=== PATIENT | female | born 1990 | race Caucasian/White ===

== ENCOUNTER 2017-06-19 13:17 | Emergency (ER) | payer OTHER ==
[2017-06-19 13:28] VITALS: BP 130/86
--- NOTE | 2017-06-19 13:33 | EDM.PDOC ---
ED HPI GENERAL MEDICAL PROBLEM - General Chief Complaint: Upper Extremity Injury/Pain Stated Complaint: R SHOULDER PAIN/FALL Time Seen by Provider: 06/19/17 13:28 Source of Information: Reports: Patient, Family (friend) History Limitations: Reports: No Limitations - History of Present Illness INITIAL COMMENTS - FREE TEXT/NARRATIVE: 27-year-old female presents to the ED for evaluation of right shoulder pain and left buttock pain. Patient was injured in the workplace last evening about 2000 hrs. when she slipped on a wet floor. Injury occurred in the workplace i.e. a restaurant. 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 Today she is experiencing increased pain in her right shoulder particularly with abduction or forward flexion. She is unable to do her hair with her right hand today of note she is right-hand dominant. She has pain in her distribution of the trapezius and right upper shoulder rhomboid levator scapular muscles. Of note the arm was above her head when it experienced a sudden jerk as she fell. Also experiencing pain throughout her anterior chest. Feels some discomfort in forearm musculature particularly volarly with clenching of fist. Denies hitting her head or losing consciousness etc. No previous injuries or surgeries to her right shoulder. Onset: Other Onset Date: 06/18/17 Onset Time: 20:00 Duration: Hour(s): Location: Reports: Chest (Anterior chest), Back (Right upper extremity shoulder upper back back trapezius levator scapulae rhomboid musculature), Upper Extremity, Right, Other (Left buttock) Quality: Reports: Ache, Other Severity: Moderate (Painful movement of particularly the right shoulder) Improves with: Reports: Rest Worsens with: Reports: Movement (And not moveing.) Context: Reports: Other (Fall at the workplace) Associated Symptoms: Reports: Chest Pain Right Shoulder Pain Score (Numeric/FACES): 6 - Related Data Home Meds: Home Meds Prozac. 06/19/17 [History] Past Medical History Psychiatric History: Reports: Depression Social & Family History - Living Situation & Occupation Living situation: Reports: Single Occupation: Employed Review of Systems - Review of Systems Review Of Systems: See Below Constitutional: Reports: No Symptoms Eyes: Reports: No Symptoms Ears: Reports: No Symptoms Nose: Reports: No Symptoms Mouth/Throat: Reports: No Symptoms Respiratory: Reports: No Symptoms Cardiovascular: Reports: No Symptoms GI/Abdominal: Reports: No Symptoms Genitourinary: Reports: No Symptoms Musculoskeletal: Reports: No Symptoms Skin: Reports: No Symptoms Neurological: Reports: No Symptoms Psychiatric: Reports: No Symptoms ED EXAM, GENERAL - Physical Exam Exam: See Below Exam Limited By: No Limitations General Appearance: Alert, WD/WN, No Apparent Distress Head: Atraumatic, Normocephalic Neck: Tender Lateral (Tenderness laterally around the paraspinal muscles particularly around C7 C6 area on the right side. She is full unrestricted range of motion of her neck [place]. There is pain throughout the distribution of the right trapezius muscle and levator scapular muscles rhomboid muscles in this area. She appears to have a rib head subluxation at the T5 area.) Respiratory/Chest: No Respiratory Distress, Lungs Clear, Normal Breath Sounds, No Accessory Muscle Use, Other (Some pain on compression of the right chest wall ribs 34 and 5 in the distribution more of the pectoralis major muscle versus the ribs.) Cardiovascular: Normal Peripheral Pulses, Regular Rate, Rhythm, No Edema, No Murmur, No Rub Back Exam: Other (Mild tenderness over the posterior iliac crest on the left side and is bit of the superior SI joint. No bruising or swelling is otherwise evident. Certainly no evidence of bony injury in this area.) Extremities: Other (Well localized tenderness to the paraspinal muscles on the right side particularly over thoracic 5 facet joint a rib head subluxation. Tenderness throughout the rhomboid levator scapula and trapezius muscle up superiorly.) Neurological: Alert, Oriented, CN II-XII Intact, Normal Cognition, Normal Gait Psychiatric: Normal Affect, Normal Mood Skin Exam: Warm, Dry, Intact, Normal Color, No Rash Course - Vital Signs Last Recorded V/S: Last Vital Signs Temp 36.6 C 06/19/17 13:24 Pulse 76 06/19/17 13:24 Resp BP 130/86 06/19/17 13:24 Pulse Ox 98 06/19/17 13:24 - Orders/Labs/Meds Orders: Active Orders 24 hr Category Date Time Status Shoulder Comp Rt [CR] Stat Exams 06/19/17 13:59 Taken Labs: Laboratory Tests 06/19/17 Range/Units 13:30 Urine HCG, Qual Negative (NEGATIVE) - Re-Assessments/Exams Free Text/Narrative Re-Assessment/Exam: 06/19/17 13:39 27-year-old female arrives in the ED for evaluation of work related injury that occurred at 2000 hrs. last evening. She slipped on wet floor. She reached up to grab onto an object to prevent the fall and unfortunately differs right shoulder head would jerk as well as her right neck right anterior chest wall etc. Pain is limited to the upper right shoulder area particularly posteriorly in the distribution of the trapezius rhomboid he beat her scapular muscle group etc. Contusion to her right buttock talked posterior iliac crest and SI joint area without fracture. Will x-ray her right shoulder. Is question whether she could be as she is not using any form of control. Therefore urine hCG ordered. 06/19/17 14:00 beta-hCG done on the urine was negative. Therefore an x-ray of her shoulder was ordered. 06/19/17 14:09 3 views of the right shoulder are completely normal. Therefore patient suffered extensive Musca scleral strain involving the right paraspinal muscles of her neck or trapezius rhomboids and levator scapula muscles in her upper back and shoulder. Also some pain throughout the anterior chest I suspect due to pectoralis major strain. Contusion to the right left buttock talked posterior iliac crest and SI joint area. Ice pack to the area for one half hour out of every 4 hours today. By that she'll be worse tomorrow. Use Aleve 2 tablets every 8 hours for pain and inflammation relief. Note written to excuse her from the work place for the next 5 days as I believe the will take about that long for her Musculoskeletal injuries to settle down. Departure - Departure Time of Disposition: 14:13 Disposition: Home, Self-Care 01 Condition: Fair Clinical Impression: Muscle strain of anterior chest wall, Contusion of lower back and pelvis, initial encounter Muscle strain of right upper back Qualifiers: Encounter type: initial encounter Qualified Code(s): S29.012A - Strain of muscle and tendon of back wall of thorax, initial encounter - Discharge Information Forms: ED Department Discharge, ED Return to Work/School Form Additional Instructions: Evaluation in the emergency department today in regards to work related injury suffered last night. Fall resulted in grabbing out to prevent fall to the floor with severe strain of the right upper posterior shoulder muscles including the trapezius rhomboids and levator scapular musculature. With head subluxation at thoracic 5 appreciated on examination. Chest wall strain similarly from grabbing and falling. This involves the pectoralis major muscles. Contusion to the left buttock and pelvis area x-ray of the right shoulder is negative for any bony injuries. Expect to be worse tomorrow and then gradually improve over the next 3-5 days. Just off of work for the next 5 days. Suggest Aleve 2 tablets every 8 hours to relieve pain and inflammation. Ice pack to the sore areas for one half hour out of every 4 hours today after today he may apply heat to the areas. - My Orders Last 24 Hours: My Active Orders 06/19/17 13:59 Shoulder Comp Rt [CR] Stat - Assessment/Plan Last 24 Hours: My Active Orders 06/19/17 13:59 Shoulder Comp Rt [CR] Stat
--- NOTE | 2017-06-20 17:29 | CR ---
Right shoulder: Three views of the right shoulder were obtained. Comparison: No previous study. Glenohumeral joint and acromioclavicular joint are unremarkable. No fracture, dislocation or other bony abnormality is seen. Impression: 1. No abnormality is identified on right shoulder study. Diagnostic code #1
== END 2017-06-19 14:30 | disposition home or self-care (01) ==
LOC: JD.ED 13:17
DX: S29.011A Strain of muscle and tendon of front wall of thorax, initial encounter (principal); S39.012A Strain of muscle, fascia and tendon of lower back, initial encounter; S39.013A Strain of muscle, fascia and tendon of pelvis, initial encounter; S29.012A Strain of muscle and tendon of back wall of thorax, initial encounter; W01.10XA Fall on same level from slipping, tripping and stumbling with subsequent striking against unspecified object, initial encounter
CPT/HCPCS: 73030-26-RT; 73030-RT; 81025; 99282; 99283